=== PATIENT | male | born 1970 | race Two or more races ===

== ENCOUNTER 2018-12-13 05:18 | Day surgery (SDC) | payer BC ==
[~2018-12-13] VITALS: Ht 172.7 cm; Wt 83.9 kg
[2018-12-13 06:12] VITALS: BP 142/87
--- NOTE | 2018-12-13 06:19 | NUR ---
MS/RN RECEIVED PATIENT AT AROUND 0530 FOR LEFT KNEE ARTHROSCOPY, PARTIAL MEDIAL MENISCECTOMY, SYNOVECTOMY. PATIENT WAS AWAKE, ALERT, ORIENTED, COMFORTABLE, NO C/O PAIN, NO DISTRESS NOTED, IV WAS INSERTED AT RT. HAND G22, SURGICAL PAPER WORKS DONE, MD ORDERS NOTED. Addendum: 12/13/18 at 0652 by QUINTIN JIMENEZ RN LUNGS ARE CLEAR, BOWEL SOUNDS PRESENT, NO EDEMA NOTED, PATIENT IS AMBULATORY.
--- NOTE | 2018-12-13 06:50 | NUR ---
MS/RN PATIENT WAS PICKED UP BY SURGERY RN IN STABLE CONDITION.
[2018-12-13] MEDS ORDERED: ANESTHESIA TRAY IN PYXIS 1 EA TRAY MC ONE (06:58)
[2018-12-13] MEDS ORDERED: CEFAZOLIN 1 GM in IV NS 0.9% 50 ML IV ONE (07:00)
[2018-12-13] MEDS ORDERED: BUPIVACAINE 0.5 % PF 150 MG/30 ML VIAL ONE (07:20)
[2018-12-13] MEDS ORDERED: MORPHINE SULFATE/PF 10 MG/10ML (1MG/ML) AMPUL ONE (08:08)
--- NOTE | 2018-12-13 09:00 | NUR ---
ms rn received a new post op patient,48 year old male,awake,alert oriented x4,not in any form of distress, respirations even and unlabored, stable v/s,s/p left knee arthroscopy w/ partial medial menisectomy,synovectomy, done by dr. ellsworth today, dressing appears dry and intact,no s/s of active bleeding will monitor patient.
--- NOTE | 2018-12-13 09:45 | NUR ---
ms rn vitals stable ,denies pain at this time, w/ order to go home today if stable.
--- NOTE | 2018-12-13 13:00 | NUR ---
ms rn patient's discharge instructions given,d/c dressing in 3 days and use band aids, weight bearing as tolerated, to have a follow up w/ dr. ellsworth in 2 weeks, no distress noted.
== END 2018-12-13 18:00 | disposition home or self-care (01) ==
LOC: DS 05:18 → UNDOADMIN 05:20 → MED 05:20 → UNDODISIN 12:25 → DS 18:00
PROVIDERS: ATTEND Student in an Organized Health Care Education/Training Program
DX: S83.232A Complex tear of medial meniscus, current injury, left knee, initial encounter (principal); M94.262 Chondromalacia, left knee; M65.862 Other synovitis and tenosynovitis, left lower leg; X58.XXXA Exposure to other specified factors, initial encounter; Y93.89 Activity, other specified; Y92.89 Other specified places as the place of occurrence of the external cause; Y99.8 Other external cause status
CPT/HCPCS: 29881; 71045; 88304; 88311; A4217; A6253; J0690; J1100; J2274; J2704; J3490; A4216; G0378